=== PATIENT | female | born 2000 | race Two or more races ===

== ENCOUNTER → 2025-08-25 | Emergency (ER) | payer OTHER ==
[~2025-08-25] VITALS: Ht 165.1 cm; Wt 63.5 kg
[~2025-08-25] MED LIST: DEXAMETHASONE SODIUM PHOSP/PF 10 MG/ML VIAL IV ONE; DEXAMETHASONE SODIUM PHOSPHATE 4 MG/ML VIAL ONE; KETO10TA2 PO; KETOROLAC TROMETHAMINE 30 MG VIAL IM ONE; KETOROLAC TROMETHAMINE 30 MG VIAL ONE; LISDEXAMFETAMIN20 MG PO
== END | disposition home or self-care (01) ==
LOC: ER 13:20
DX: S93.491A Sprain of other ligament of right ankle, initial encounter (principal); W18.39XA Other fall on same level, initial encounter; Y93.89 Activity, other specified; Y92.488 Other paved roadways as the place of occurrence of the external cause; Y99.9 Unspecified external cause status
CPT/HCPCS: 73700; 96365; 96372; 99283; J1100; J1885